=== PATIENT | female | born 1995 | race Caucasian/White ===

== ENCOUNTER 2021-12-08 04:21 | Emergency (ER) | payer OTHER ==
[~2021-12-08] VITALS: Ht 162.6 cm; Wt 121.6 kg
[2021-12-08 04:33] VITALS: BP_SYST 122
[2021-12-08] MEDS ORDERED: ALBUTEROL SULFATE 0.083% 2.5 MG/3 ML VIAL.NEB INH ONE (04:45)
[2021-12-08] MEDS ORDERED: KETOROLAC TROMETHAMINE 30 MG VIAL IVP ONE (04:45)
[2021-12-08] MEDS ORDERED: NACL 0.9% 1,000 ML IV ONE (04:45)
[2021-12-08] MEDS ORDERED: DEXAMETHASONE SOD PHOSPHATE 10 MG/ML VIAL IVP ONE (04:45)
[2021-12-08] MEDS ORDERED: ALBU8.5H8 INH (05:45)
[2021-12-08] MEDS ORDERED: GUAI5SYR PO (05:45)
[2021-12-08] MEDS ORDERED: AZITHROMYCIN 250 MG TABLET PO ONE (05:45)
[2021-12-08] MEDS ORDERED: INHA1EAC52 MC (05:45)
[2021-12-08] MEDS ORDERED: IBUP-1971 PO (05:45)
[2021-12-08] MEDS ORDERED: ZIT250 PO (05:47)
[2021-12-08 06:37] LABS: BASOPHILS % (AUTO) 0.4 % (0.0-2.0); EOSINOPHILS # (AUTO) 0.1 K/uL (0.0-0.4); EOSINOPHILS % (AUTO) 1.6 % (0.0-4.0); HEMATOCRIT 35.2 % (36-48); LYMPHOCYTES # (AUTO) 1.5 K/uL (1.0-5.5); LYMPHOCYTES % (AUTO) 21.5 % (20.5-51.5); MEAN CORPUSCULAR VOLUME 89 fL (79.0-98.0); MONOCYTES # (AUTO) 0.5 K/uL (0.0-1.0); MONOCYTES % (AUTO) 7.5 % (1.7-9.3); NEUTROPHILS # (AUTO) 4.9 K/uL (1.8-7.7); PLATELET COUNT (AUTO) 187 K/uL (130-430); RED BLOOD CELL COUNT(AUTO) 3.96 MIL/uL (4.2-6.2); RED CELL DISTRIBUTION WIDTH 13.4 % (9.0-15.0)
[2021-12-08 06:45] LABS: ANION GAP 11 (5-15); CALCIUM 8.3 mg/dL (8.4-11.0); CHLORIDE 105 mmol/L (98-107); CREATININE 0.73 mg/dL (0.55-1.30); GLUCOSE 142 mg/dL (70-99); POTASSIUM 3.2 mmol/L (3.5-5.1); UREA NITROGEN, BLOOD 6 mg/dL (8-21)
[2021-12-08 06:57] LABS: ALANINE AMINOTRANSFERASE 29 U/L (12-78); ASPARTATE AMINOTRANSFERASE 19 U/L (10-37); TOTAL BILIRUBIN 0.3 mg/dL (0.0-1.0)
[2021-12-08 07:01] LABS: GFR AFRICAN AMERICAN 126 mL/min (>90)
[2021-12-08] MEDS ORDERED: POTASSIUM CHLORIDE 20 MEQ TAB.PRT.SR PO ONE (08:30)
[2021-12-08 08:58] VITALS: BP_SYST 117
[2021-12-08] MEDS ORDERED: NIRM1TAB5 PO (09:06)
[2021-12-08 11:16] LABS: HEMOGLOBIN 11.9 g/dL (12.0-16.0); MEAN CORPUSCULAR HEMOGLOBIN 30 pg (27-31); MEAN CORPUSCULAR HGB CONC 34 % (32-36)
== END 2021-12-08 09:08 | disposition home or self-care (01) ==
LOC: SED 04:21
DX: U07.1 COVID-19 (principal); J18.9 Pneumonia, unspecified organism; J40 Bronchitis, not specified as acute or chronic; R06.02 Shortness of breath; R05.9 Cough, unspecified; R50.9 Fever, unspecified; Z79.899 Other long term (current) drug therapy
CPT/HCPCS: 80053; 85025; 85379; 84484; 36415; 93005; 71045; 94640; 99285; 96361; 96374; 96375; 81025; Q0144; J1100; J1885; J7613; J7030